=== PATIENT | male | born 1940 | race Caucasian/White ===

== ENCOUNTER 2016-02-22 21:05 | Inpatient (IN) | payer OTHER ==
[~2016-02-22] VITALS: Ht 180.3 cm; Wt 93.9 kg
--- NOTE | ~2016-02-22 | 2DMMODE ---
[facility] [place] [address] 2 D/M-MODE ECHOCARDIOGRAM Name: NICK GUEVARA Room #: 310-P [facility] IN [facility]#: [id number] Admission: 02/22/16 Attend Phys: Floyd Boyle, Discharge: Date of : 40 Date of Service: 02/24/16 1158 Report #: [id number] THIS REPORT FOR: //name// Transthoracic Echocardiography Ordering physician: Ansley Tinoco Referring physician: Kalyn Hicks Laura L. Negative Spotter: DURGA Espinal Indications/History: COPD, SOA,DM, HTN, Bradycardia. BP: 118 / HR: 55bpm Height: 70in Weight: 206.6lb 70 Study data: M-mode, complete 2D, complete spectral Doppler, and color Doppler. Location: Echo laboratory. Routine. Image quality was good. 2D measurements Normal Normal LVID ED 58.1mm 36-57 IVS ED 9.7mm 6-11 LVID ES 38mm 23-40 LVPW ED 12.4mm 6-11 LA volume 30ml/m2 16-28 AoRoot diam 38.4mm 21-37 index ED LVOT diameter 23mm 18-23 Findings: Left ventricle: The cavity size was at the upper limits of normal. Wall thickness was normal. Systolic function was normal. The estimated ejection fraction was in the range of 55% to 60%. Wall motion was normal. Right ventricle: The cavity size was dilated. Systolic function was normal. Right atrium: The atrium was dilated. Left atrium: The atrium was normal in size. Volume index: 30ml/m2 (S). Aortic valve: Trileaflet; mildly calcified leaflets. Doppler: There was no stenosis. No regurgitation. Peak velocity: 136.3cm/s (S). [facility] [address] [place] [address] 2 D/M-MODE ECHOCARDIOGRAM Name: NICK GUEVARA Room #: 310-P [facility] IN ..#: [id number] Admission: 02/22/16 Attend Phys: Floyd Boyle, Discharge: Date of : 40 Date of Service: 02/24/16 1158 Report #: [id number] Mitral valve: Structurally normal valve. Doppler: There was no evidence for stenosis. No regurgitation. Peak E-wave velocity: 94.1cm/s. Peak gradient: 3.5mm Hg (D). Peak A-wave velocity: 79cm/s. Tricuspid valve: Structurally normal valve. Doppler: There was no evidence for stenosis. No regurgitation. Pulmonic valve: Structurally normal valve. Doppler: There was no evidence for stenosis. Trivial regurgitation. Pericardium: There was no pericardial effusion. Aorta: Aortic root: The aortic root was normal in size. Pulmonary artery: Pressure could not be reliably determined due to minimal or absent tricuspid insufficiency jet, but pulmonary hypertension was not suggested. Diastolic function: Normal diastolic function. Systemic veins: Inferior vena cava: The vessel was dilated; the respirophasic diameter changes were in the normal range (= 50%). Conclusions 1. Left ventricle: The cavity size was at the upper limits of normal. Wall thickness was normal. Systolic function was normal. The estimated ejection fraction was in the range of 55% to 60%. 2. Right ventricle: The cavity size was dilated. 3. Right atrium: The atrium was dilated. 4. Aortic valve: Trileaflet; mildly calcified leaflets. 5. Mitral valve: Structurally normal valve. Peak A-wave velocity: 79cm/s. 6. Pulmonary arteries: Pressure could not be reliably determined due to minimal or absent tricuspid insufficiency jet, but pulmonary hypertension was not suggested. <ELECTRONICALLY SIGNED> By: Alex Schmidt MD 02/24/16 1304 1158 1304 Alex Schmidt MD /meghan
--- NOTE | ~2016-02-22 | EKG ---
[address] [employer] [place] [address] ELECTROCARDIOGRAM REPORT Name: NICK GUEVARA Room #: 310-P ADM IN M.R.#: [id number] Admission: 02/22/16 Attend Phys: Gloria Lock MD Discharge: Date of : 40 Report #: [id number] THIS REPORT FOR: //name// [facility] ED Test Date: 2016-02-22 Test Time: 21:28:40 Pat Name: NICK GUEVARA Department: Room: 310 Gender: M Business Relationship Manager: CASIMIRO : 1940 Requested By: Jennifer Aguilar Order Number: [id number] MD: Ramesh Reed Measurements Intervals [place] Rate: 93 P: -56 NC: 198 QRS: -20 QRSD: 97 T: 61 QT: 323 QTc: 402 Interpretive Statements Sinus rhythm Borderline left axis deviation No previous ECG available for comparison Electronically Signed On 02-23-2016 7:48:57 TRAINING AND DEVELOPMENT ASSISTANT by Ramesh Reed [email or web address] <ELECTRONICALLY SIGNED> By: Ramesh Reed MD, [facility] 02/23/16 0748 2128 27 Ramesh Reed MD, FACC /EPI
[~2016-02-22 21:05] MED LIST: ADVAIR 250-501 EACH INH; ALBUTEROL2.5 MG/31 IH; ALLEGRA180 MG PO; AMARYL4 MG PO; AVELOX 400 MG400 MG PO; AVODART0.5 MG PO; CARDURA8 MG PO; CIPROFLOXACIN500 M1 PO; COMBIVENT; COMBIVENT INH; CYCLOBENZAPRINE10 MG PO; DUONEB 2.5-0.5 M3 ML IH; FLONASE 0.05%50 MCG INH; GLUCOPHAGE500 MG PO; HYDROCHLOROTHIA25 M1 PO; HYDROCODON-ACE1 EACH; LEVAQUIN 500 M500 M2 PO; LEVAQUIN 500 M500 MG PO; LISINOPRIL20 MG PO; MOBIC15 MG PO; MUCINEX600 MG PO; NORCO 5-325 TA1 EACH PO; PRINIVIL40 MG PO; TRIGLIDE160 M1 PO
[2016-02-22 21:06] VITALS: BP 155/70
[2016-02-22 21:48] LABS: HEMATOCRIT 34.6 % (42.0-52.0); HEMOGLOBIN 11.3 gm/dL (14.0-18.0); MCH 28.6 pg (26.0-34.0); MCHC 32.7 % (28.0-37.0); MCV 87.4 fL (80.0-100.0); PLATELET COUNT 186 thou/uL (150-400); RBC 3.95 mil/uL (4.50-6.00); RDW 14.4 % (10.5-14.5); WBC 8.1 thou/uL (4.0-11.0)
[2016-02-22 21:56] LABS: MANUAL DIFF YES
[2016-02-22 22:03] LABS: ANION GAP 9 mmol/L (7-16); BUN 13 mg/dL (7-18); CALCIUM 9.8 mg/dL (8.5-10.1); CHLORIDE 103 mmol/L (98-107); CO2 28 mmol/L (21-32); GLUCOSE 137 mg/dL (70-99); POTASSIUM 4.2 mmol/L (3.5-5.1); SODIUM 140 mmol/L (136-145)
[2016-02-22 22:17] LABS: ALBUMIN 3.9 g/dL (3.4-5.0); ALKALINE PHOSPHATASE 56 U/L (46-116); NT-PRO BRAIN NAT PEPTIDE 96 pg/mL (<300); SGOT 8 U/L (15-37); SGPT 15 U/L (30-65); TOTAL BILIRUBIN 0.2 mg/dL (<0.1-1.0); TOTAL PROTEIN 7.5 g/dL (6.4-8.2); TROPONIN-I < 0.04 ng/mL (<0.04-0.07)
[2016-02-22 22:18] LABS: ABSOLUTE NEUTROPHILS 6.9 thou/uL (1.4-8.2); ANISOCYTOSIS 1+; TOTAL CELL COUNT 100
[2016-02-22 23:29] VITALS: BP 146/65
[2016-02-22 23:50] VITALS: BP 132/61
[2016-02-23] MEDS ORDERED: AMARYL2 MG PO (03:51)
[2016-02-23] MEDS ORDERED: FLONASE 0.05%50 MCG NASAL (03:57)
[2016-02-23] MEDS ORDERED: PROSCAR 5MG TABL5 MG PO (03:58)
[2016-02-23] MEDS ORDERED: CEFDINIR300 MG PO (03:59)
[2016-02-23] MEDS ORDERED: BUDESONIDE0.5 MG/2 M IH (04:01)
[2016-02-23] MEDS ORDERED: PERFOROMIS20 MCG/2 M IH (04:02)
[2016-02-23] MEDS ORDERED: COMBIVENT INH (04:05)
[2016-02-23 05:00] VITALS: BP 135/55
[2016-02-23 08:38] VITALS: BP 126/57
[2016-02-23 11:16] VITALS: BP 130/54
[2016-02-23 16:42] VITALS: BP 133/108
[2016-02-23 20:00] VITALS: BP 113/43
[2016-02-24 04:00] VITALS: BP 123/60
[2016-02-24 05:06] LABS: HEMATOCRIT 30.8 % (42.0-52.0); HEMOGLOBIN 10.2 gm/dL (14.0-18.0); MCH 28.4 pg (26.0-34.0); MCHC 33.1 % (28.0-37.0); MCV 85.9 fL (80.0-100.0); PLATELET COUNT 206 thou/uL (150-400); RBC 3.58 mil/uL (4.50-6.00); RDW 14.5 % (10.5-14.5); WBC 11.1 thou/uL (4.0-11.0)
[2016-02-24 05:46] LABS: MANUAL DIFF YES
[2016-02-24 05:52] LABS: CALCIUM 9.2 mg/dL (8.5-10.1); CREATININE 0.9 mg/dL (0.6-1.3); POTASSIUM 4.1 mmol/L (3.5-5.1)
[2016-02-24 05:58] LABS: CHOLESTEROL 120 mg/dL (<200); HDL CHOLESTEROL 43 mg/dL (>40); LDL CHOLESTEROL 69 mg/dL (<100); TC:HDL 2.8 Ratio (Not establshd); TRIGLYCERIDE 44 mg/dL (<150); VLDL 9 mg/dL (<40)
[2016-02-24 06:05] LABS: SERUM ASSESSMENT Clear
[2016-02-24 07:47] LABS: ABSOLUTE NEUTROPHILS 10.3 thou/uL (1.4-8.2); PLATELET ESTIMATE NORMAL; TOTAL CELL COUNT 100
[2016-02-24 08:06] VITALS: BP 118/70
[2016-02-24 12:59] VITALS: BP 151/61
[2016-02-24 15:42] VITALS: BP 117/56
[2016-02-24 19:51] VITALS: BP 135/56
[2016-02-25 04:00] VITALS: BP 124/59
[2016-02-25 05:56] LABS: HEMATOCRIT 31.3 % (42.0-52.0); HEMOGLOBIN 10.3 gm/dL (14.0-18.0); MCH 28.5 pg (26.0-34.0); MCHC 32.9 % (28.0-37.0); MCV 86.6 fL (80.0-100.0); PLATELET COUNT 212 thou/uL (150-400); RBC 3.61 mil/uL (4.50-6.00); RDW 14.5 % (10.5-14.5); WBC 13.5 thou/uL (4.0-11.0)
[2016-02-25 06:01] LABS: MANUAL DIFF YES
[2016-02-25 06:03] LABS: CALCIUM 9.2 mg/dL (8.5-10.1); CREATININE 0.9 mg/dL (0.6-1.3); POTASSIUM 4.1 mmol/L (3.5-5.1)
[2016-02-25 07:55] LABS: ABSOLUTE NEUTROPHILS 12.6 thou/uL (1.4-8.2); ANISOCYTOSIS 1+; TOTAL CELL COUNT 100
[2016-02-25 08:26] VITALS: BP 132/63
[2016-02-25] MEDS ORDERED: LEVAQUIN 500 M500 M2 PO (10:50)
[2016-02-25 10:59] VITALS: BP 132/63
== END 2016-02-25 14:10 | disposition home or self-care (01) | DRG 871 ==
LOC: ER 21:05 → 3N 22:48 → EROBS 22:48 → 3N 23:30
PROVIDERS: Emergency Medicine; Family Medicine; Internal Medicine Cardiovascular Disease
DX: A41.9 Sepsis, unspecified organism (principal); J18.9 Pneumonia, unspecified organism; J44.9 Chronic obstructive pulmonary disease, unspecified; I10 Essential (primary) hypertension; E11.9 Type 2 diabetes mellitus without complications; G47.30 Sleep apnea, unspecified; I44.1 Atrioventricular block, second degree; Z98.890 Other specified postprocedural states; Z79.899 Other long term (current) drug therapy; Z88.6 Allergy status to analgesic agent; Z79.2 Long term (current) use of antibiotics; Z88.2 Allergy status to sulfonamides; Z87.891 Personal history of nicotine dependence; Z99.81 Dependence on supplemental oxygen
CPT/HCPCS: 10096

== ENCOUNTER → 2018-07-30 | Outpatient (CLI) | payer OTHER ==
[~2018-07-30] VITALS: Ht 180.3 cm; Wt 95.3 kg
[~2018-07-30] MED LIST changes: +ALBUTEROL2.5 MG/31 INH; +AMARYL2 MG PO; +BUDESONIDE0.5 MG/2 M INH; +CARDURA4 MG PO; +CEFDINIR300 MG PO; +FLONASE 0.05%50 MCG NASAL; +HYDROCHLOROTHIA25 M2 PO; +PERFOROMIS20 MCG/2 M IH; +PROSCAR 5MG TABL5 MG PO
--- NOTE | 2018-07-31 17:06 | PATH ---
[facility] [place] [address] PATHOLOGY RPT PROCEDURE Name: NICK GUEVARA Room #: REG [facility]acon.#: [id number] ������������������ Admission: 07/30/18 ������������������ Date of : 40 Discharge: Report #: [id number] Path Case #: [id number] [facility] Accession Number: [id number] . 01 Material submitted: . PART A: stomach - BX GASTRIC ULCERS R/O H PYLORI PART B: esophagus - ESOPHAGEAL BX R/O BARRETTS PART C: esophagus - RANDOM ESOPHAGEAL BX R/O EOE . 01 Clinical history: . 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 pylori; R/O Han's; R/O EOE . 02 Diagnosis: A. Gastric mucosa, gastric ulcers R/O H. pylori, endoscopic biopsy: - Foci of ulceration and underlying fibrotic lamina propria present. - Remainder of fragments showing features of mild active gastritis along with reactive gastropathy. - Negative for intestinal metaplasia or atrophy. - Negative for Helicobacter pylori (properly controlled immunohistochemical stain performed). . B. Gastroesophageal mucosa, R/O Han's, endoscopic biopsy: - Specialized columnar epithelium (gastric cardia-type mucosa) with intestinal metaplasia, compatible with Han's metaplasia. - Squamous mucosa with mild esophagitis and changes compatible with reflux. - Negative for dysplasia. . C. Squamous mucosa, random esophagus R/O EOE, endoscopic biopsy: - Mild esophagitis with features of reflux esophagitis. - No increase in intraepithelial eosinophils. - Negative for intestinal metaplasia or dysplasia. (IUV:andrea; 07/31/2018) QMS/07/31/2018 . 02 Electronically signed: . Maryan Farfan MD, Pathologist NPI- [id number] . 01 Gross description: . A. The specimen is received in formalin, labeled "Nick Guevara, biopsy gastric ulcers, R/O H. pylori". Received are four segments of pale cuellar soft tissue ranging in size from 0.4 to 0.6 cm in maximum dimensions. The specimen is submitted entirely in cassette A1. . [address] [address] PATHOLOGY RPT PROCEDURE Name: NICK GUEVARA Room #: REG CLI [facility].#: [id number] ������������������ Admission: 07/30/18 ������������������ Date of : 40 Discharge: Report #: [id number] Path Case #: [id number] B. The specimen is received in formalin, labeled "Nick Guevara, esophageal biopsy, R/O Han's". Received are two segments of pale cuellar soft tissue ranging in size from 0.3 to 0.4 cm in maximum dimensions. The specimen is submitted entirely in cassette B1. . C. The specimen is received in formalin, labeled "Nick Guevara, random esophageal biopsy, R/O EOE". Received are three segments of pale cuellar soft tissue ranging in size from 0.4 to 0.6 cm in maximum dimensions. The specimen is submitted entirely in cassette C1. (CAA; 07/30/2018) QAC/QAC . 02 Pathologist provided ICD-10: K25.9, K29.70, K31.9, K22.70, K21.0 . 02 CPT . 806192, 652926, 544001, [id number] Specimen Comment: A courtesy copy of this report has been sent to Specimen Comment: [phone], . Specimen Comment: Report sent to / DR DEVINE Performed at: [address], [place], [place] [id number] MD Bola Abarca MD Phone: [phone] Performed at: [address] [id number] MD Maryan Farfan MD Phone: [phone]
== END | disposition home or self-care (01) ==
LOC: GI 09:28
DX: K29.00 Acute gastritis without bleeding (principal); K31.9 Disease of stomach and duodenum, unspecified; K22.70 Barrett's esophagus without dysplasia; K21.0 Gastro-esophageal reflux disease with esophagitis; I10 Essential (primary) hypertension; E78.00 Pure hypercholesterolemia, unspecified; J44.9 Chronic obstructive pulmonary disease, unspecified; G47.33 Obstructive sleep apnea (adult) (pediatric); Z98.41 Cataract extraction status, right eye; Z98.42 Cataract extraction status, left eye; Z88.2 Allergy status to sulfonamides; Z88.8 Allergy status to other drugs, medicaments and biological substances; Z98.890 Other specified postprocedural states; Z79.899 Other long term (current) drug therapy
CPT/HCPCS: 62110; 62900

== ENCOUNTER → 2018-10-22 | Outpatient (CLI) | payer OTHER ==
[~2018-10-22] VITALS: Ht 180.3 cm; Wt 96.6 kg
[~2018-10-22] MED LIST changes: +CRESTOR10 MG PO; +OMEPRAZOLE40 MG PO
== END | disposition home or self-care (01) ==
LOC: GI 09:21
DX: K25.9 Gastric ulcer, unspecified as acute or chronic, without hemorrhage or perforation (principal); R13.19 Other dysphagia; K44.9 Diaphragmatic hernia without obstruction or gangrene; I10 Essential (primary) hypertension; E11.9 Type 2 diabetes mellitus without complications; G47.33 Obstructive sleep apnea (adult) (pediatric); J43.9 Emphysema, unspecified; E78.5 Hyperlipidemia, unspecified; E78.00 Pure hypercholesterolemia, unspecified; F17.210 Nicotine dependence, cigarettes, uncomplicated; Z98.890 Other specified postprocedural states; Z79.899 Other long term (current) drug therapy; Z88.2 Allergy status to sulfonamides; Z88.8 Allergy status to other drugs, medicaments and biological substances
CPT/HCPCS: 62110; 62900

== ENCOUNTER → 2020-04-29 | Outpatient (CLI) | payer OTHER | LOC: SJCVC 16:16 | PROVIDERS: ATTEND Internal Medicine Cardiovascular Disease | DX: R94.31 Abnormal electrocardiogram [ECG] [EKG] (principal); I44.4 Left anterior fascicular block; I10 Essential (primary) hypertension; E78.00 Pure hypercholesterolemia, unspecified; E11.9 Type 2 diabetes mellitus without complications; J43.9 Emphysema, unspecified; G47.33 Obstructive sleep apnea (adult) (pediatric); F17.210 Nicotine dependence, cigarettes, uncomplicated; Z99.81 Dependence on supplemental oxygen; Z98.890 Other specified postprocedural states; Z88.8 Allergy status to other drugs, medicaments and biological substances; Z79.84 Long term (current) use of oral hypoglycemic drugs; Z79.899 Other long term (current) drug therapy ==

== ENCOUNTER → 2020-10-13 | Outpatient (CLI) | payer OTHER | LOC: SJCVC 14:06 | PROVIDERS: ATTEND Internal Medicine Cardiovascular Disease | DX: R94.31 Abnormal electrocardiogram [ECG] [EKG] (principal); I25.2 Old myocardial infarction; I10 Essential (primary) hypertension; E78.00 Pure hypercholesterolemia, unspecified; E11.9 Type 2 diabetes mellitus without complications; J43.9 Emphysema, unspecified; G47.33 Obstructive sleep apnea (adult) (pediatric); F17.200 Nicotine dependence, unspecified, uncomplicated; Z79.84 Long term (current) use of oral hypoglycemic drugs; Z79.899 Other long term (current) drug therapy; Z88.2 Allergy status to sulfonamides; Z88.8 Allergy status to other drugs, medicaments and biological substances ==